=== PATIENT | male | born 1960 | race Caucasian/White ===

== ENCOUNTER 2016-11-15 16:45 | Inpatient (IN) | payer MEDICAID ==
--- NOTE | ~2016-11-15 | HP ---
Unit #: [id number] #: [id number] Patient: ARELI LLANES [id number] [address] [place], [place] [address] [id number] MR#: [id number] NAME: ARELI LLANES ROOM: Age: 56 Sex: M Admission Date: 11/15/2016 : 1960 Attending Physician: Tonny Singh M.D. Primary Care Physician: Christ Abarca HISTORY AND PHYSICAL CHIEF COMPLAINT Headache x2 weeks, confusion. HISTORY OF PRESENT ILLNESS The patient is a 56-year-old male with past medical history of intracranial aneurysm, hypertension who presented to the emergency department for evaluation of the above. The patient states that he has had a two-week history of not feeling well. He reports mild headache. He has also had increased thirst and increased urination. He has had nausea. He denies any vomiting within the past 24-hours. He has had diarrhea but again none within the past 24 hours. He states that his abdomen is "sore." He states that within the past couple of weeks he had an episode of bright red blood per rectum that then changed to black stool. He states that he has lost weight. He is not sure how much. Upon arrival in the emergency department the patient's temperature was 99.7, pulse 90, respirations 16, blood pressure 159/85, oxygen saturation was 95% on room air. Accu-Chek read as high. Comprehensive metabolic panel notable for glucose of 1032, bicarb is 25, sodium 126, potassium 5.3, beta hydroxybutyrate is 0.22. Urinalysis does not show any ketones but greater than 1000 glucose. He received 2 L of normal saline as well as 10 units of regular insulin in the emergency department. He is being admitted to [facility] for evaluation and further treatment. PAST MEDICAL HISTORY 1. Admission to a hospital in [place] in March of 2016 for bronchitis. 2. History of intracranial aneurysm status post clipping. 3. Hypertension. PAST SURGICAL HISTORY 1. Right eye surgery. 2. Clipping of brain aneurysm. 3. Hernia repair. SOCIAL HISTORY The patient lives with his . He smokes less than a pack a cigarettes daily. He denies alcohol or illicit drug use. He does have a history of alcohol abuse with his last drink being more than five years ago. He is currently unemployed. His code status is a Full Code. Unit #: [id number] #: [id number] Patient: ARELI LLANES FAMILY HISTORY Family history is notable for his mother having CHF and Parkinson disease. His dad had cancer. ALLERGIES No known allergies. HOME MEDICATIONS None. REVIEW OF SYSTEMS A complete review of systems is negative except as indicated in the HPI. DIAGNOSTIC STUDIES CARDIOVASCULAR: EKG shows sinus rhythm with occasional PVCs and a rate of 96 beats per minute. LABORATORY: Complete blood count is essentially normal. Urinalysis notable for greater than 1000 glucose. Comprehensive metabolic panel notable for sodium of 126, glucose 1032, potassium is 5.3, bicarb is 25, chloride 77, alkaline phosphatase 99, beta hydroxybutyrate is 0.22. PHYSICAL EXAMINATION VITAL SIGNS: Temperature is 99.7. Pulse 90. Respirations 16. Blood pressure 159/85. Oxygen saturation is 95% on room air. GENERAL: The patient is a male who is awake and alert, in no acute distress. HEENT: The patient is status post right eye enucleation. Mucous membranes are dry. NECK: Neck is supple. Trachea is midline. CARDIOVASCULAR: Regular rate and rhythm. LUNGS: Lungs are clear to auscultation bilaterally with no increased work of breathing. ABDOMEN: Abdomen is soft. He does have an umbilical hernia that is reducible. Bowel sounds are present in all four quadrants. EXTREMITIES: Nontender with no pedal edema. NEUROLOGIC: The patient is awake and alert. He is oriented x3. He follows commands. PSYCHIATRIC: The patient is cooperative with exam. He does demonstrate poor insight. ASSESSMENT The patient is a 56-year-old male with: 1. Hyperosmolar hyperglycemia with a glucose of 1032. The patient has received 2 L of normal saline as well as 10 units of regular insulin. Most recent Accu-Chek is reading as "high." 2. Hyponatremia secondary to hyperglycemia. 3. Hypertension, not currently on medication. 4. Weight loss (unknown amount). 5. History of melena, hemoglobin is 16 today. He has never had endoscopy. 6. History of intracranial aneurysm status post clipping. 7. History of alcohol abuse with last drink being more than five years ago. 8. Tobacco abuse. PLAN 1. Admit to ICU. Unit #: [id number] #: [id number] Patient: ARELI LLANES 2. N.p.o. except ice chips. 3. Non-DKA insulin drip per protocol to start now. 4. Frequent BMPs. 5. Check magnesium. 6. Hemoglobin A1C. 7. TSH. 8. Consult Dr. Trujillo regarding hyperosmolar hyperglycemia. 9. Chest x-ray. 10. Urine tox screen 11. CT of the head without contrast for further evaluation of headache in patient with history of intracranial aneurysm. 12. Hemoccult stool. 13. Consult chest medicine regarding ICU admission. 14. Neuro checks. 15. Serial cardiac enzymes. 16. Protonix for GI prophylaxis. 17. SCDs for DVT prophylaxis. 18. Additional workup and consultants based on above. 19. Regarding code status, the patient is a Full Code. Forty-one minutes critical care time spent in the care of this patient (6:30 to 7:11 p.m.). Dictated by Carlos A Sams/dwain TD: 11/15/2016 19:23 JOB #: [id number] HISTORY AND PHYSICAL X Corinne Rao MD X HISTORY AND PHYSICAL
--- NOTE | ~2016-11-15 | A ---
[facility] Nutrition Therapy DATE: 11/16/16 Patient: ARELI LLANES Physician: NASH [facility] [address] [facility] Room/Bed: [address], Zip: [place] [address] Admit Date: 11/15/16 Date of : [birth year] Height: 5 10 Weight: 233 106 NUTRITIONAL ASSESSMENT: REASON: CONSULT RE: DM DIET EDUCATION HT: 5'10", WT: 240# (109 KG), BMI: 34.4 -WEIGHTS RANGED 233-249# SINCE ADMIT RD PROVIDED WRITTEN AND VERBAL CC DIET EDUCATION. RD PROVIDED LIST OF FOODS TO AVOID/LIMIT AND FOODS TO EAT MORE OFTEN. RD EMPHASIZED IMPORTANCE OF CONSUMING CONSISTENT MEAL SCHEDULE W/BALANCED MEALS. RD ALSO EMPHASIZED IMPORTANCE OF CUTTING BACK/LIMITING SUGAR-SWEETENED BEVERAGES. PT REPORTS "EATING WHATEVER AND WHENEVER HE WANTS" WELL DRINKS SODAS DAILY. THIS RD ENCOURAGED PT TO CUT BACK ON SODA INTAKE, PT AGREED. PT SLEEPY/LETHARGIC AT TIME OF VISIT REPORTING NO DIET QUESTIONS AT THIS TIME. RD TO REMAIN AVAILABLE. EXPECT PT TO HAVE MILD COMPLIANCE WITH DIET ORDER ONCE D/C'D HOME. RECOMMENDATIONS: 1. CONTINUE TO ENCOURAGE COMPLIANCE OF CURRENT DIET ORDER 2. RE-CONSULT RD IF FURTHER DIET EDUCATION NEEDED/REQUESTED RD WILL F/U PER PROTOCOL Respectfully, Esau Flores RD, LD [facility] and Nutrition[facility] cc: client file
--- NOTE | ~2016-11-15 | CT71 ---
[facility] A Service of [facility] RADIOLOGY TEXT RESULTS PATIENT: ARELI LLANES LOCATION: [facility] [place] 239-01 : [birth year] UNIT #: [id number] AGE: [address]: Yaw Cantu MD SEX: M ORDER DR: [id number] [facility]. [place], [place] [address] [id number] I MR#: [id number] Acc #: [id number] NAME: ARELI LLANES : 1960 SEX: M STUDY DATE/TIME: 11/15/2016 21:29 UNIT: [facility] ROOM: [facility] STUDY DESCRIPTION: CT Head Wo Contrast Attending Physician: Yaw Cantu M.D. Ordering Physician: Corinne Rao M.D. Primary Care Physician: Christ Abarca MEDICAL IMAGING REPORT This report is preliminary unless electronic signature is present EXAM Noncontrast head CT. HISTORY 56-year-old male, headaches x2 weeks, unsteady gait, confusion. History of aneurysm clip. FINDINGS Axial noncontrast imaging of the brain demonstrates aneurysm clip in the anterior aspect of the suprasellar recess possibly related to aneurysm clipping, possibly representing an anterior communicating artery aneurysm clip. There is encephalomalacia right frontal lobe compatible with old infarct. No mass or mass effect or midline shift. No hemorrhage. Craniotomy changes noted are noted in the right frontal region extending into the right temporal bone. Skull base, mastoids and sinuses unremarkable. 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 IMPRESSION 1. No acute intracranial abnormality identified. 2. 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 Dictated by... Melyssa Gonzalez M.D. THIS IS AN ELECTRONICALLY VERIFIED REPORT Melyssa Gonzalez M.D. at 11/16/2016 2:09 PM Srinivasa TD: 11/16/2016 11:19 JOB #: [id number] MEDICAL IMAGING REPORT [facility] A Service of [facility] RADIOLOGY TEXT RESULTS PATIENT: ARELI LLANES LOCATION: [facility] [place] 239-01 : [birth year] UNIT #: [id number] AGE: [address]: Yaw Cantu MD SEX: M ORDER DR: COPY
--- NOTE | ~2016-11-15 | EKG ---
PATIENT: ARELI LLANES UNIT #: [id number] Ventricular Rate: 96 BPM Atrial Rate: 96 BPM P-R Interval: 154 ms QRS Duration: 114 ms Q-T Interval: 418 ms QTC Calculation(Bezet): 528 ms P [place]: 35 degrees Calculated R [place]: 53 degrees Calculated T [place]: 21 degrees Diagnosis Line: Sinus rhythm with occasional Premature ventricular Diagnosis Line: complexes Diagnosis Line: Moderate voltage criteria for LVH, may be normal Diagnosis Line: variant Diagnosis Line: Nonspecific T wave abnormality Diagnosis Line: Prolonged QT Diagnosis Line: Abnormal ECG Diagnosis Line: No previous ECGs available Diagnosis Line: Confirmed by KAROLINA TOVAR MD ([id number]) on Diagnosis Line: 11/16/2016 11:26:01 AM INTERPRETING MD: GUY SANTAMARIA
--- NOTE | ~2016-11-15 | CO ---
Unit #: [id number] #: [id number] Patient: ARELI LLANES [id number] [address] [place], [place] [address] [id number] I MR#: [id number] NAME: ARELI LLANES ROOM: 239 Age: 56 Sex: M Admission Date: 11/15/2016 : 1960 Attending Physician: Yaw Cantu M.D. Primary Care Physician: Christ Abarca Consultation Date: 11/16/2016 CONSULTATION REPORT REASON FOR CONSULTATION Uncontrolled diabetes mellitus, newly diagnosed. 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 He had some diarrhea. He reports that he has lost some weight, but he is not sure how much, and upon his arrival in the emergency room, he was found to have a blood sugar above 1000 with normal bicarb, he had hyponatremia, he was started on insulin drip and IV fluids and transferred to the unit bed, where insulin drip was discontinued and has been transferred to the floor. At the time of examination, the patient is awake, alert, and oriented to time, place, and person, in no acute distress. He reports he has never been diagnosed in the past and never been on any oral hypoglycemic agents or insulin. PAST MEDICAL HISTORY Intracranial aneurysm and hypertension. PAST SURGICAL HISTORY Right eye surgery, clipping of brain aneurysm, hernia repair. SOCIAL HISTORY Lives with . Smokes less than pack per day. No recent alcohol or illicit drugs. FAMILY HISTORY Notable for Parkinson disease and heart disease. ALLERGIES None. HOME MEDICATIONS He was none currently. The patient is on Levemir 30 units in the morning and NovoLog 5 units each meal. REVIEW OF SYSTEMS A 12-point review of system is completed. Please see HPI, otherwise it is unremarkable. PHYSICAL EXAMINATION GENERAL: He is awake, alert, oriented to time, place, and person, in no Unit #: [id number] #: [id number] Patient: ARELI LLANES acute distress. VITAL SIGNS: Stable, temperature 98.7, blood pressure 136/76. HEENT: He has a right eye blindness. Left eye, pupil reactive to light. Extraocular movements intact. NECK: Supple. No thyromegaly. No bruit noted. CHEST: Good air entry. No wheezing. CVS: Regular rhythm. S1, S2. No murmurs. ABDOMEN: Obese. Bowel sounds positive. No guarding, rigidity noted. EXTREMITIES: No edema, ulcers, or amputations are noted. No clubbing or cyanosis. NEUROLOGIC: Nonfocal. Moving all extremities. Cranial nerves grossly intact. SKIN: Normal. DIAGNOSTIC STUDIES LABORATORY RESULTS: Labs were reviewed. Sodium is 132, potassium 3.5, chloride 102, CO2 is 27, A1c is 12.2. ASSESSMENT 1. Hyperosmolar hyperglycemia nonketotic, which has resolved. 2. Type 2 diabetes mellitus, newly diagnosed, uncontrolled. 3. Hypertension. PLAN I discussed with the patient at length need about lifestyle modifications. We will get the nutrition consult. Discontinue Levemir in the morning and start Levemir 50 units at bedtime. Increase the NovoLog insulin to 15 units every meal. Continue supplemental sliding scale as needed. Accu-Cheks a.c. and h.s. Continue aspirin and TIFFANY inhibitors. We will add the low dose of the statin such as atorvastatin 10 mg daily. Thanks again for consultation. Dictated by... Carlos A Ramon/true TD: 11/17/2016 07:59 JOB #: [id number] CONSULTATION REPORT X August Trujillo MD X CONSULTATION REPORT
--- NOTE | ~2016-11-15 | CO ---
Unit #: [id number] #: [id number] Patient: ARELI LLANES [id number] [address] [place], [place] [address] [id number] I MR#: [id number] NAME: ARELI LLANES ROOM: [facility] Age: 56 Sex: M Admission Date: 11/15/2016 : 1960 Attending Physician: Yaw Cantu M.D. Primary Care Physician: Christ Abarca Consultation Date: 11/16/2016 CONSULTATION REPORT BRIEF HISTORY The patient is a 56-year-old gentleman, who presented 24 hours ago with just not feeling well for 2 weeks and mild headaches. He was found to have elevated blood glucose and was placed on an insulin drip. He had no fevers or chills. I am asked to evaluate a mass that has been in his right chest wall. He originally told the nurses that he had a port placed. No true history of this. He says that has drained in the past. He has having no pain with this. PAST MEDICAL HISTORY Bronchitis, hypertension, hyperglycemia. PAST SURGICAL HISTORY He has had inguinal hernia repair. SOCIAL HISTORY Does smoke. No alcohol. FAMILY HISTORY Negative for GI malignancy. REVIEW OF SYSTEMS No cardiopulmonary complaints at this time. Else, 10 systems reviewed and negative. PHYSICAL EXAMINATION GENERAL: He is awake, alert, and appropriate. VITAL SIGNS: Currently afebrile. Blood pressure 128/94. HEENT: Unremarkable. NECK: Supple. No JVD. Trachea midline. LUNGS: Clear to auscultation. Bilateral breath sounds symmetric. CARDIOVASCULAR: Regular rate and rhythm. ABDOMEN: Soft, nontender, and nondistended. I palpated no masses. No hepatosplenomegaly. EXTREMITIES: No clubbing, cyanosis, or edema. Chest wall shows a 2 cm subcutaneous nodule. This is soft and mobile. There is no erythema. This is nontender and nonfluctuant. No induration. DIAGNOSTIC STUDIES LABORATORY RESULTS: Show white count of 6.5. ASSESSMENT AND PLAN Sebaceous cyst, benign. I see no evidence of infection. No plans for operative management at this stage. Unit #: [id number] #: [id number] Patient: ARELI LLANES Dictated by... Alejo Bradshaw M.D. JNO/true TD: 11/16/2016 07:01 JOB #: [id number] CONSULTATION REPORT X Alejo Bradshaw MD CONSULTATION REPORT
--- NOTE | ~2016-11-15 | CR72 ---
[facility] A Service of [facility] & [facility] RADIOLOGY TEXT RESULTS PATIENT: ARELI LLANES LOCATION: [facility] 239-01 : [birth year] UNIT #: [id number] AGE: [address]: Yaw Cantu MD SEX: M ORDER DR: [id number] [facility]. [place], [place] [address] [id number] I MR#: [id number] Acc #: [id number] NAME: ARELI LLANES : 1960 SEX: M STUDY DATE/TIME: 11/15/2016 21:17 UNIT: [facility] ROOM: [facility] STUDY DESCRIPTION: CR Chest Single View Portable Attending Physician: Yaw Cantu M.D. Ordering Physician: Corinne Rao M.D. Primary Care Physician: Christ Abarca MEDICAL IMAGING REPORT This report is preliminary unless electronic signature is present EXAM Portable chest HISTORY 56-year-old male, DKA, cough for 2 weeks. FINDINGS A single AP portable view of the chest shows both lungs to be clear. The heart is normal in size. The mediastinal contour is normal. No significant bone abnormalities are seen. IMPRESSION Normal portable chest. Dictated by... Melyssa Gonzalez M.D. THIS IS AN ELECTRONICALLY VERIFIED REPORT Melyssa Gonzalez M.D. at 11/16/2016 2:09 PM KAILYN/pastor TD: 11/16/2016 10:55 JOB #: [id number] MEDICAL IMAGING REPORT COPY
--- NOTE | ~2016-11-15 | DS ---
Unit #: [id number] #: [id number] Patient: ARELI LLANES [id number] [address] [place], [place] [address] [id number] I MR#: [id number] NAME: ARELI LLANES ROOM: 239 Age: 56 Sex: M Admission Date: 11/15/2016 : 1960 Discharge Date: 11/17/2016 Attending Physician: Yaw Cantu M.D. Primary Care Physician: Christ Abarca DISCHARGE SUMMARY DISCHARGE DIAGNOSES 1. Hyperosmotic hyperglycemic nonketotic state. 2. Newly diagnosed type 2 diabetes. 3. Pseudohyponatremia. 4. Essential hypertension. 5. Drug abuse. 6. Benigna sebaceous cyst in the right upper quadrant chest. CONSULTANTS Dr. Bradshaw of General Surgery as well as Dr. Trujillo of Endocrinology. PROCEDURES None. DIAGNOSTIC STUDIES IMAGING STUDIES: Consist of chest CT on 11/15/2016, impression, normal portable chest x-ray. Head CT without contrast, 11/15/2016, impression, no acute intracranial abnormality identified, post surgical changes with his aneurysm clipped as well as evidence of both right frontal lobe infarct. Labs on the day of discharge. LABORATORY RESULTS: The patient's BMP with glucose of 178, BUN 18, creatinine 1.0, sodium 132, potassium 3.8, chloride 101, CO2 of 27, calcium 8.4, magnesium 1.7, total protein 5.8. Hemoglobin A1c was 12.2. Fasting lipid, total cholesterol of 89, triglyceride of 148, LDL 21, HDL is 18. CBC with WBC of 6.5, RBC 5.09, hemoglobin 15.5, hematocrit 41.6, MCV 81.7, MCH 28.6, MCHC 35.0, RDW is 12.6, platelets 151, MPV 7.7. The patient's Accu-Chek in the past 24 hours had been between 121 and 302 is the highest. HOSPITAL COURSE The patient is a 56-year-old male with past medical history of intracranial aneurysm, essential hypertension, who presented to the emergency department due to headache with some confusion. The patient stated that he had 2 weeks of history of not doing well. He reports mild headache. He also had increased thirst and increased urination. He also had nausea, but denied vomiting within the past 3 to 4 hours. He has had diarrhea, but again prior to admission, he states that abdomen was sore. He states that within the past couple of weeks, he had an episode of bright red blood per rectum, but then changed to black stool. He states that he had lost weight. He is not sure how much. Upon arrival to the Unit #: [id number] #: [id number] Patient: ARELI LLANES emergency department, the patient's temperature was 99.7, pulse was 90, respiratory rate 16, blood pressure was 159/85, oxygen saturation was 95% on room air. Accu-Chek recently is reported as high. Glucose was 1032, bicarb 25, sodium 126, potassium 5.3, beta-hydroxybutyrate 0.22. Urinalysis did not show any ketones, but greater than 1000 glucose. He received 2 L of normal saline as well as 10 units of insulin. He was hospitalized for further treatment. The patient tells me he actually has had visual changes and has never been diagnosed with diabetes until this admission. His A1c at that time was 12.2. The patient was seen in consultation with Dr. Trujillo of Endocrinology, who suggested to use Levemir 50 units at bedtime as well as NovoLog 15 units with meals along with medium dosed sliding scale insulin. At this time, the patient's blood sugar is controlled. The patient does have a growth on his right upper quadrant and this had been bothersome for him, was seen in consultation with Dr. Bradshaw of General Surgery who felt that it was benign sebaceous cyst and no surgical intervention is needed. The patient also has reducible umbilical hernia. Again, no constipation or diarrhea at this time. No nausea or vomiting either. The patient tells me that he has had umbilical hernia for quite sometime. I discussed with the patient to follow up with the Dr. Bradshaw with [facility] for an outpatient evaluation for the need to have umbilical hernia repaired along with his desire to have the sebaceous cyst removed. DISCHARGE CONDITION Stable. DISCHARGE FOLLOWUP Follow up with [facility] on 11/24/2016 at 10:20 as he has no primary care physician at this time. Follow up with Dr. Trujillo within 6 to 8 weeks. I have asked [facility] to meet with him for diabetes education in a newly diagnosed diabetic and follow up with [facility] within 3 to 4 weeks to assess for his umbilical hernia as well as a sebaceous cyst. DISCHARGE MEDICATIONS Include Lipitor 10 mg orally at bedtime, lisinopril 5 mg orally daily, Levemir 50 units subcutaneously at bedtime, Humalog 15 units t.i.d. with meals as well as medium dose sliding scale insulin, Pepcid 20 mg orally b.i.d., aspirin 81 mg orally over the counter. We will also give the patient metformin 500 mg orally b.i.d. Dictated by... KRUPA Yadav/true TD: 11/18/2016 02:45 JOB #: [id number] Unit #: [id number] #: [id number] Patient: ARELI LLANES DISCHARGE SUMMARY X X DISCHARGE SUMMARY
[2016-11-15 16:32] LABS: BASOPHIL% 0.5 % (0-2.5); DIFF IND NO; EOSINOPHIL% 0.2 % (0.0-7.0); LYMPHOCYTE# 0.8 X10e3 (1.0-3.5); LYMPHOCYTE% 12.2 % (17.0-45.0); MEAN CORPUSCULAR HEMOGLOBIN 28.7 PG (28-34); MEAN CORPUSCULAR HGB CONC 33.4 g/dL (30-36); MEAN PLATELET VOLUME 8.2 FL (6.5-11.5); MONOCYTE# 1.1 X10e3 (0-1.0); MONOCYTE% 17.4 % (3.0-12.0); NEUTROPHIL# 4.4 X10e3 (1.5-7.1); NEUTROPHIL% 69.7 % (40-75); PLATELET COUNT 157 X10e3 (140-420); RED BLOOD COUNT 5.58 X10e (3.90-5.60); RED CELL DISTRIBUTION WIDTH 12.7 % (11.0-15.5); WHITE BLOOD COUNT 6.3 X10e3 (4.0-10.5)
[2016-11-15 16:33] LABS: URINE SOURCE CLEAN CATCH
[2016-11-15 16:41] LABS: URINE APPEARANCE CLEAR; URINE BILIRUBIN NEG (NEG); URINE BLOOD NEG (NEG); URINE COLOR YELLOW; URINE GLUCOSE >1000 MG/DL (NEG); URINE KETONE NEG (NEG); URINE LEUKOCYTE ESTERASE NEG (NEG); URINE NITRATE NEG (NEG); URINE PROTEIN NEG (NEG); URINE SPECIFIC GRAVITY 1.033 (1.003-1.035); URINE UROBILINOGEN 0.2 MG/DL (NEG)
[2016-11-15 16:59] LABS: CULTURE INDICATED? NO
[2016-11-15 17:41] LABS: ALBUMIN SERUM 4.1 g/dL (3.5-5.0); ALKALINE PHOSPHATASE 99 U/L (32-92); ALT (SGPT) 24 U/L (10-40); AST (SGOT) 21 U/L (10-42); BILIRUBIN, DIRECT 0.2 mg/dL (0.0-0.2); BILIRUBIN,TOTAL 1.2 mg/dL (0.2-2.0); BLOOD UREA NITROGEN 19 mg/dL (9-23); BUN/CREATININE RATIO 14.61; CALCIUM SERUM 8.5 mg/dL (8.4-10.2); CARBON DIOXIDE 25 mmol/L (22-31); CHLORIDE 77 mmol/L (100-111); CREATININE SERUM 1.3 mg/dL (0.6-1.4); GLOM FILT RATE Estimated ABOVE60 mL/min (>60); POTASSIUM 5.3 mmol/L (3.5-5.1); PROTEIN TOTAL SERUM 6.8 g/dL (6.0-8.3)
[2016-11-15 17:43] LABS: GLUCOSE FASTING 1032 mg/dL (70-110); SODIUM 126 mmol/L (135-145)
[2016-11-15] MEDS ORDERED: NO MEDICATIONS (17:55)
[2016-11-15 20:52] LABS: AMPHETAMINE POS (NEG); BARBITURATES NEG (NEG); BENZODIAZEPINES NEG (NEG); COCAINE NEG (NEG); MARIJUANA NEG (NEG); OPIATES NEG (NEG); TRICYCLIC ANTIDEPRESSANTS NEG (NEG); U METHADONE NEG (NEG)
[2016-11-15 20:54] LABS: BLOOD UREA NITROGEN 18 mg/dL (9-23); BUN/CREATININE RATIO 13.84; CALCIUM SERUM 8.1 mg/dL (8.4-10.2); CARBON DIOXIDE 25 mmol/L (22-31); CHLORIDE 90 mmol/L (100-111); CREATININE SERUM 1.3 mg/dL (0.6-1.4); GLOM FILT RATE Estimated ABOVE60 mL/min (>60); POTASSIUM 4.2 mmol/L (3.5-5.1)
[2016-11-15 20:56] LABS: GLUCOSE FASTING 684 mg/dL (70-110); SODIUM 126 mmol/L (135-145)
[2016-11-15 21:15] LABS: %MB 3.2 % (0.0-4.0)
[2016-11-16 03:18] LABS: BASOPHIL% 0.4 % (0-2.5); EOSINOPHIL# 0.1 X10e3 (0-0.7); EOSINOPHIL% 1.1 % (0.0-7.0); HEMATOCRIT 41.6 % (38.0-50.0); HEMOGLOBIN 14.5 gm/dL (13.0-16.0); LYMPHOCYTE# 2.2 X10e3 (1.0-3.5); LYMPHOCYTE% 34.5 % (17.0-45.0); MEAN CORPUSCULAR HEMOGLOBIN 28.6 PG (28-34); MEAN PLATELET VOLUME 7.7 FL (6.5-11.5); MONOCYTE# 1.2 X10e3 (0-1.0); MONOCYTE% 18.7 % (3.0-12.0); NEUTROPHIL# 2.9 X10e3 (1.5-7.1); NEUTROPHIL% 45.3 % (40-75); PLATELET COUNT 151 X10e3 (140-420); RED BLOOD COUNT 5.09 X10e (3.90-5.60); RED CELL DISTRIBUTION WIDTH 12.6 % (11.0-15.5); WHITE BLOOD COUNT 6.5 X10e3 (4.0-10.5)
[2016-11-16 03:29] LABS: MEAN CELL VOLUME 81.7 FL (83-96)
[2016-11-16 03:30] LABS: DIFF IND NO
[2016-11-16 04:09] LABS: ALBUMIN SERUM 3.4 g/dL (3.5-5.0); ALKALINE PHOSPHATASE 75 U/L (32-92); ALT (SGPT) 18 U/L (10-40); AST (SGOT) 18 U/L (10-42); BILIRUBIN,TOTAL 0.7 mg/dL (0.2-2.0); BLOOD UREA NITROGEN 18 mg/dL (9-23); CALCIUM SERUM 8.4 mg/dL (8.4-10.2); CARBON DIOXIDE 27 mmol/L (22-31); CHLORIDE 101 mmol/L (100-111); GLOM FILT RATE Estimated ABOVE60 mL/min (>60); GLUCOSE FASTING 178 mg/dL (70-110); MAGNESIUM 2.1 mg/dL (1.6-3.0); POTASSIUM 3.5 mmol/L (3.5-5.1); PROTEIN TOTAL SERUM 5.8 g/dL (6.0-8.3); SODIUM 132 mmol/L (135-145)
[2016-11-16 04:15] LABS: %MB 2.9 % (0.0-4.0); MB 2.7 ng/ml
[2016-11-16 09:21] LABS: %MB 3.2 % (0.0-4.0); MB 2.3 ng/ml
[2016-11-17 07:09] LABS: MAGNESIUM 1.7 mg/dL (1.6-3.0)
[2016-11-17] MEDS ORDERED: LISINOPRIL5 MG PO (10:25)
[2016-11-17] MEDS ORDERED: ATORVASTATIN CA10 MG PO (10:25)
[2016-11-17] MEDS ORDERED: LEVEMIR100 UNITS/ SUBQ (10:26)
[2016-11-17] MEDS ORDERED: NOVOLOG100 U/ML (10:26)
[2016-11-17] MEDS ORDERED: NOVOLOG100 U/ML SUBQ (10:27)
[2016-11-17] MEDS ORDERED: ACID REDUCER20 MG PO (10:28)
[2016-11-17] MEDS ORDERED: GLUCOPHAGE500 M1 PO (10:29)
[2016-11-17] MEDS ORDERED: ASPIRIN ENTERI325 M1 PO (10:32)
== END 2016-11-17 13:06 | disposition home or self-care (01) | DRG 638 ==
LOC: CED 16:45 → CEDOF 19:10 → CICCU2 11-16 00:09 → C2A 11-16 13:57
PROVIDERS: Emergency Medicine; Family Medicine
PROC: 3E0234Z Introduction of Serum, Toxoid and Vaccine into Muscle, Percutaneous Approach (ICD-10-PCS; principal; 2016-11-17)
DX: E11.00 Type 2 diabetes mellitus with hyperosmolarity without nonketotic hyperglycemic-hyperosmolar coma (NKHHC) (principal); E87.1 Hypo-osmolality and hyponatremia; I10 Essential (primary) hypertension; H54.41 Blindness, right eye, normal vision left eye; R19.7 Diarrhea, unspecified; F17.210 Nicotine dependence, cigarettes, uncomplicated; Z82.49 Family history of ischemic heart disease and other diseases of the circulatory system; Z79.4 Long term (current) use of insulin; L72.3 Sebaceous cyst; Z23 Encounter for immunization
CPT/HCPCS: 36415; 70450; 71010; 80048; 80053; 80061; 80076; 80307; 81003; 82010; 82550; 82553; 82607; 82947; 83036; 83735; 84132; 84443; 84484; 85025; 87040; 93005; 96361; 96374; 97162; 99285; C9113; J1815; J1885; J3370; J3420; J3475